=== PATIENT | male | born 1995 | race Caucasian/White ===

== ENCOUNTER 2019-12-07 21:55 | Emergency (ER) | payer MEDICAID ==
[~2019-12-07] VITALS: Ht 172.7 cm; Wt 107.0 kg
[2019-12-07] MEDS ORDERED: KETOROLAC 30MG/ML VIAL IM ONE (23:45)
[2019-12-07 23:51] VITALS: BP 126/90
== END 2019-12-08 01:11 | disposition home or self-care (01) ==
LOC: ER 21:55
DX: S20.219A Contusion of unspecified front wall of thorax, initial encounter (principal); M79.10 Myalgia, unspecified site; J45.909 Unspecified asthma, uncomplicated; Z90.89 Acquired absence of other organs; Z88.0 Allergy status to penicillin; V43.52XA Car driver injured in collision with other type car in traffic accident, initial encounter; Y93.89 Activity, other specified; Y92.488 Other paved roadways as the place of occurrence of the external cause
CPT/HCPCS: 71045; 96372; 99283; J1885